=== PATIENT | female | born 1945 ===

== ENCOUNTER 2025-05-23 07:00 | Day surgery (SDC) | payer OTHER ==
[~2025-05-23 07:00] MED LIST: AMLODIPINE-OLM1 EAC1; ATORVASTATIN CA40 MG; CHILDREN'S ASPI81 MG; ZESTRIL20 MG
[2025-05-23] MEDS ORDERED: CEFAZOLIN SODIUM 1,000 MG VIAL ONE (08:19)
[2025-05-23] MEDS ORDERED: POVIDONE-IODINE 118 ML BOTT TOP ONE (10:15)
[2025-05-23] MEDS ORDERED: CEPHALEXIN250 M1 PO (13:23)
== END 2025-05-23 16:30 | disposition home or self-care (01) ==
LOC: CIR.AMB 07:00
PROVIDERS: ATTEND Obstetrics & Gynecology
DX: N84.0 Polyp of corpus uteri (principal)